=== PATIENT | female | born 1995 | race Caucasian/White ===

== ENCOUNTER 2019-09-05 22:31 | Outpatient (CLI) | payer OTHER ==
[~2019-09-05] VITALS: Ht 167.6 cm; Wt 69.5 kg
[2019-09-05 22:30] VITALS: BP 128/67; PULSE 93; TEMP 98.2
[2019-09-05] MEDS ORDERED: PRENATAL MVI (22:40)
--- NOTE | 2019-09-05 23:00 | NUR ---
2210- Patient ambulatory to R-4 with , Amando. Patient and oriented to room. Patient into restroom to change into gown. 2211- Patient into bed. EFM and TOCO on and tracing. Patient presents to L&D with complaints of "abdominal kicks/pain/tightening/cramping" that she believes to be contractions that come and go. Patient says she was visiting family over the weekened that were sick and shes worried she may get/have the flu because she has had increased fatigue and 5x soft stools today. Patient denies LOF other than "leaking after she uses the bathroom", bleeding, or spotting and reports baby has been moving normally and her FKC have been normal. Patient says she has started to increase her fluid intake and has not had any nausea. Amniotest negative. SVE /-2. VSS. Plan of care discussed. 2255- See Physician Notification. PO fluids given and encouraged. 2315- FHR pattern reassuring. 500ml PO fluids finished. EFM and TOCO off. Encouraged patient to increase PO fluids at home and to keep upcoming OB appointment on 09/07/[address] [facility]. Questions encouraged and answered. 2325- Patient and ambulatory off unit.
== END 2019-09-05 23:25 | disposition home or self-care (01) ==
LOC: LDRO 22:31
DX: O62.9 Abnormality of forces of labor, unspecified (principal); Z3A.37 37 weeks gestation of pregnancy

== ENCOUNTER 2019-09-16 09:50 | Inpatient (IN) | payer OTHER ==
[2019-09-16] VITALS (49 sets, daily range): BP systolic 82–152; BP diastolic 50–87; PULSE 59–118; TEMP 98–99
[~2019-09-16] VITALS: Ht 167.6 cm; Wt 72.3 kg
[~2019-09-16 09:50] MED LIST: PRENATAL MVI
--- NOTE | 2019-09-16 10:20 | NUR ---
Presents to labor and delivery. Stands in room. heart monitor on. Iv start by Nicolette Marshall, lab drawn and sent. Blood [id number], patient getting pale. Bed down, fan on, wash cloth given, fluid bolus given. Blood pressure up to 116/63. States feeling better.
--- NOTE | 2019-09-16 11:00 | NUR ---
Pitocin 2 letitia units iv started as ordered and per policy.
[2019-09-16 11:23] LABS: BASO % 0.3 % (0.0-2.0); EOS # 0.1 (0.0-0.7); GRAN # 4.4 (1.4-6.5); LYMPH # 1.2 (1.2-3.4); LYMPH % 19.1 % (20.0-51.0); MEAN CELL VOLUME 96 fl (80.0-100.0); MEAN CORPUSCULAR HEMOGLOBIN 32 pg (27.0-31.0); MEAN CORPUSCULAR HGB CONC 34 g/dl (33.0-37.0); MEAN PLATELET VOLUME 11.7 fl (7.4-10.4); MONO # 0.4 (0.1-0.6); MONO % 6.3 % (1.7-9.3); PLATELET COUNT 149 K/mm3 (130-400); RED BLOOD COUNT 3.43 M/mm3 (4.10-5.30); REDCELL DISTRIBUTION WIDTH-CV 13.8 % (11.5-14.5)
[2019-09-16 11:24] LABS: HEMATOCRIT 32.8 % (37.0-47.0)
--- NOTE | 2019-09-16 12:00 | NUR ---
Ambulates to the bathroom and back. Sits on the edge of the bed. Denies any discomfort or pain at this time.
--- NOTE | 2019-09-16 12:45 | NUR ---
Continues to sit up on the edge of the bed. States starting to feel the contractions now. Continues to socialize with family.
--- NOTE | 2019-09-16 13:00 | NUR ---
1310 Ambulates to the bathroom and back. Lies down in bed. Denies any needs at this time.
--- NOTE | 2019-09-16 14:00 | NUR ---
1403 Dr. Appiah here, visits with patient. [address] Appiah. Large amount of clear fluid noted. Pad changed.
--- NOTE | 2019-09-16 14:30 | NUR ---
This nurse going to lunch. Hannah watching patient.
--- NOTE | 2019-09-16 16:00 | NUR ---
Ambulates to the bathroom and back. Vag exam done, dilated to four. Request epidural. 1610 Anesthesia called and let know request for epidural.
--- NOTE | 2019-09-16 16:30 | NUR ---
Anesthesia here, visits with patient. 1635 Sits up for epidural. 1640 Local given by anesthesia Kyler Siegel c.r.n.a. 1641 Space obtained by anesthesia and single shot given. 1641 Catheter placed by anesthesia.
--- NOTE | 2019-09-16 17:00 | NUR ---
Rests in bed, alert. States feeling better with the epidural. Family at bedside.
--- NOTE | 2019-09-16 17:15 | NUR ---
Dos Santos catheter placed per sterile technique. Small amount of clear yellow urine noted.
--- NOTE | 2019-09-16 17:45 | NUR ---
Rests in bed, alert. Denies any pain or discomfort. Vag exam done, dilated 6-7, 90 percent effaced, zero station. Family at bedside.
--- NOTE | 2019-09-16 18:15 | NUR ---
Rests in bed, alert. Report given to Cora Marshall.
--- NOTE | 2019-09-16 18:15 | NUR ---
Report received from Ce MEEK. Pt visiting with family. Denies needing anything. Plan of care explained to pt and who verbalize understanding. Call light within reach. 1852: Pt repositioned to RL with peanut ball in place. 1922: called for update on pts status. SVE completed /+1, bloody show noted. Pericare provided. called back with update on pts status. See physican notification. Pt updated on plan of care. 1999: Pt reposistioned to LL with peanut ball. Denies any needs at this time.
--- NOTE | 2019-09-16 20:34 | NUR ---
SVE C/+2. Pericare provided and plan of care explained to pt and . Education on pushing with contractions explained to pt. 2039: Practice push completed with this RN. Moves vertex well. 2042: called and updated. See physican notification. Pt continues pushing with this RN. 2103: at bedside for delivery. Pt assisted into footplates and prepped for delivery. Pt startes pushing with provider. 2109: Second degree MLE explained and completed at this time by . 2111: Spontaneous vaginal delivery of viable male by . Pitocin stopped. Infant bulb suctioned by provider. to mothers chest where dried and stimulated by Nursery RN. Cord clamped X2 and cut by FOB. Care of infant assumed by Raghu MEEK. 2119: Spontaneous delivery of intact placenta by . Pitocin resummed at 333mus/hr per protocol. Second degree MLE and left vaginal wall repaired by . Pericare provided. Pads changed and pt repostioned in bed. Plan of care and safety precautions explained to pt and family who verbalize understanding. Call light within reach. See doctor dications and anesthesia records.
[2019-09-17 01:05] VITALS: BP 114/66; PULSE 72; TEMP 99.1
[2019-09-17 05:30] VITALS: BP 111/75; PULSE 81; TEMP 99.3
[2019-09-17 08:53] VITALS: BP 122/80; PULSE 80; TEMP 97.8
[2019-09-17] MEDS ORDERED: IBU600 MG PO (10:06)
--- NOTE | 2019-09-17 12:50 | NUR ---
Tool Crib Manager offered congrats to family.
[2019-09-17 18:00] VITALS: BP 120/64; PULSE 72
[2019-09-17 20:00] VITALS: BP 117/73; PULSE 84; TEMP 98.4
[2019-09-18 07:28] VITALS: BP 114/68; PULSE 78; TEMP 98.2
== END 2019-09-18 10:10 | disposition home or self-care (01) | DRG 807 ==
LOC: LDR 09:50 → OB 09-17 00:02
PROVIDERS: ADMIT Obstetrics & Gynecology
PROC: 10E0XZZ Delivery of Products of Conception, External Approach (ICD-10-PCS; principal; 2019-09-16)
PROC: 0KQM0ZZ Repair Perineum Muscle, Open Approach (ICD-10-PCS; 2019-09-16)
PROC: 10907ZC Drainage of Amniotic Fluid, Therapeutic from Products of Conception, Via Natural or Artificial Opening (ICD-10-PCS; 2019-09-16)
PROC: 0W8NXZZ Division of Female Perineum, External Approach (ICD-10-PCS; 2019-09-16)
PROC: 0UQMXZZ Repair Vulva, External Approach (ICD-10-PCS; 2019-09-16)
PROC: 3E033VJ Introduction of Other Hormone into Peripheral Vein, Percutaneous Approach (ICD-10-PCS; 2019-09-16)
DX: O70.1 Second degree perineal laceration during delivery (principal); Z37.0 Single live birth; Z3A.39 39 weeks gestation of pregnancy
CPT/HCPCS: J2590; J2795; J7120

== ENCOUNTER → 2019-09-20 | Outpatient (CLI) | payer OTHER ==
[~2019-09-20] MED LIST changes: +IBU600 MG PO
--- NOTE | 2019-09-20 13:56 | NUR ---
Pt, Laverne Alejandro, into the clinic with 4 day old "Rajiv" for breast feeding evaluation. Rajiv had a repeat bili level drawn prior to coming into clinic. Rajiv's bili level remains at high int. risk, so Laverne was advised by Dr. Sorensen to visit clinic and to start supplementing after BF. Rajiv was born on [birth year] via with a weight of 8# 10 oz. Laverne states Rajiv is nursing approx 10 times per day and is having 3 wet diapers per day. He has had approx 4-6 stools since . Today, Rajiv's prefeed weight was noted as 7#11.5 oz (3502 gm), a 10% loss since . contacted Dr. Sorensen and she advised to feed 30-40 ml. While in clinic, Laverne latched [place] to the left breast. Good positioning and latch noted; however, Rajiv became sleepy approx 8 min into the nursing session. SNS offered and Rajiv breastfed more actively. Rajiv nursed for approx 15 min on the left breast, taking 8 ml from the breast and 12 ml Similac via SNS. Laverne attempted to latch [place] to the right breast but Rajiv was to sleepy. Laverne then offered Rajiv a bottle in which he took 8 mls. Rajiv's total intake in clinic was noted as 28 ml. Laverne states he nursed for a little while before coming into clinic. SAMMY discussed need for supplementation and pumping and gave written education on 3 step feeding method of breast feeding, supplementing, and pumping. POC: Use 3 step feeding method, offering each breast with every feed and 30-45 mls supplementation, then pumping with each feed. Follow up tomorrow for repeat bili as ordered by Dr. Sorensen. Return next Thursday for weight check. Questions invited and answered. Understanding verbalized.
== END ==
LOC: LAC 12:13
DX: Z39.1 Encounter for care and examination of lactating mother (principal); Z71.89 Other specified counseling